=== PATIENT | female | born 1960 | race Caucasian/White ===

== ENCOUNTER → 2021-04-30 | Outpatient (CLI) | payer BC ==
[~2021-04-30] MED LIST: 3 IN 1 COMMODE XX; CLARITIN10 M2 PO; NORCO 7.5-3251 EACH PO; SENNO8.6 MG PO; ZOLOFT50 MG PO
== END ==
LOC: RAD 08:31
DX: R13.10 Dysphagia, unspecified (principal)
CPT/HCPCS: 74221